=== PATIENT | male | born 1945 | race American Indian/Alaskan Native ===

== ENCOUNTER 2016-11-15 19:37 | Emergency (ER) | payer MEDICARE ==
[2016-11-16 15:53] VITALS: BP 150/70
--- NOTE | 2016-11-16 16:58 | Emergency Department Report ---
ED General Adult HPI - General Chief complaint: Nausea/Vomiting/Diarrhea Stated complaint: RECTAL PAIN Time Seen by Provider: 11/16/16 16:42 Source: patient, RN notes reviewed, old records reviewed Mode of arrival: Ambulatory Limitations: No Limitations - History of Present Illness Initial comments: This is a 71-year-old male, who might have evaluated in the past. Primary care doctor is Dr. John Montero. Has a past medical history of hypertension, chronic venous insufficiency, chronic lower extremity ulcers, diabetes, obesity and hypertension. The patient presents to the ER complaining of frequent bowel movements since August. They are nonbloody. They're intermittent. They are painless. He has no extremity weakness which is new or different. There is no abdominal pain or rectal pain. There is no saddle anesthesia. There is no testicular pain. Denies irritative and obstructive urinary symptoms. Cannot describe exacerbating or relieving factors. He is not homicidal. He is not suicidal. -: Gradual, month(s) Severity scale (0 -10): 8 Consistency: intermittent Improves with: none Worsens with: none Associated Symptoms: denies: confusion, chest pain, cough, diaphoresis, fever/ chills, headaches, loss of appetite, malaise, nausea/vomiting, rash, seizure, shortness of breath, syncope, weakness Treatments Prior to Arrival: none - Related Data Home Medications Medication Instructions Recorded Confirmed Last Taken glipiZIDE XL [Glucotrol Xl] 10 mg PO QAM 02/25/16 02/25/16 Unknown Previous Rx's Medication Instructions Recorded Last Taken Type Amlodipine Besylate/Benazepril 10 mg PO DAILY #30 capsule 08/01/15 Unknown Rx [Lotrel 10-20 mg] Bicalutamide [Casodex] 50 mg PO DAILY #30 tablet 08/01/15 Unknown Rx Cyclobenzaprine [Flexeril 10 MG 10 mg PO TID PRN #30 tablet 08/01/15 Unknown Rx TAB] Gabapentin [Neurontin] 300 mg PO QHS #30 capsule 08/01/15 Unknown Rx traMADol [Ultram 50 MG tab] 50 mg PO BID #60 tablet 08/01/15 Unknown Rx Furosemide [Lasix] 20 mg PO QDAY #7 tablet 09/15/15 Unknown Rx Sulfamethoxazole/Trimethoprim 1 each PO BID #14 tablet 11/19/15 Unknown Rx [Bactrim DS TAB] Furosemide [Lasix TAB] 40 mg PO QDAY #30 tablet 03/11/16 Unknown Rx risperiDONE [RisperDAL] 0.5 mg PO QAM #30 tablet 03/11/16 Unknown Rx risperiDONE [RisperDAL] 1 mg PO QHS #30 tablet 03/11/16 Unknown Rx Allergies Allergy/AdvReac Type Severity Reaction Status Date / Time No Known Allergies Allergy Verified 07/28/15 20:16 ED Review of Systems ROS: Stated complaint: RECTAL PAIN Other details as noted in HPI Constitutional: denies: fever Eyes: denies: eye discharge ENT: denies: epistaxis Respiratory: denies: cough Cardiovascular: denies: chest pain Gastrointestinal: denies: abdominal pain Genitourinary: as per HPI. denies: urgency, dysuria, testicular pain Musculoskeletal: denies: back pain Skin: lesions Neurological: denies: weakness Psychiatric: as per HPI ED Past Medical Hx - Past Medical History Previous Medical History?: Yes Hx Hypertension: Yes Hx Congestive Heart Failure: Yes Hx Diabetes: Yes Additional medical history: venous ulcers - Surgical History Past Surgical History?: Yes Additional Surgical History: unknown - Social History Smoking Status: Never Smoker Substance Use Type: None - Medications Home Medications: Home Medications Medication Instructions Recorded Confirmed Last Taken Type Amlodipine Besylate/Benazepril 10 mg PO DAILY #30 capsule 08/01/15 02/25/16 Unknown Rx [Lotrel 10-20 mg] Bicalutamide [Casodex] 50 mg PO DAILY #30 tablet 08/01/15 02/25/16 Unknown Rx Cyclobenzaprine [Flexeril 10 MG 10 mg PO TID PRN #30 tablet 08/01/15 02/25/16 Unknown Rx TAB] Gabapentin [Neurontin] 300 mg PO QHS #30 capsule 08/01/15 02/25/16 Unknown Rx traMADol [Ultram 50 MG tab] 50 mg PO BID #60 tablet 08/01/15 02/25/16 Unknown Rx Furosemide [Lasix] 20 mg PO QDAY #7 tablet 09/15/15 02/25/16 Unknown Rx Sulfamethoxazole/Trimethoprim 1 each PO BID #14 tablet 11/19/15 02/25/16 Unknown Rx [Bactrim DS TAB] glipiZIDE XL [Glucotrol Xl] 10 mg PO QAM 02/25/16 02/25/16 Unknown History Furosemide [Lasix TAB] 40 mg PO QDAY #30 tablet 03/11/16 Unknown Rx risperiDONE [RisperDAL] 0.5 mg PO QAM #30 tablet 03/11/16 Unknown Rx risperiDONE [RisperDAL] 1 mg PO QHS #30 tablet 03/11/16 Unknown Rx ED Physical Exam - General Limitations: No Limitations General appearance: alert, in no apparent distress - Head Head exam: Present: atraumatic, normocephalic - Eye Eye exam: Present: normal appearance, EOMI. Absent: nystagmus - ENT ENT exam: Present: normal exam, normal orophraynx, mucous membranes moist - Neck Neck exam: Present: normal inspection, full ROM. Absent: tenderness, meningismus - Respiratory Respiratory exam: Present: normal lung sounds bilaterally. Absent: respiratory distress, wheezes, rales, rhonchi, stridor, chest wall tenderness - Cardiovascular Cardiovascular Exam: Present: regular rate, normal rhythm, normal heart sounds. Absent: bradycardia, tachycardia, irregular rhythm, systolic murmur, diastolic murmur, rubs, gallop - GI/Abdominal GI/Abdominal exam: Present: soft, normal bowel sounds. Absent: distended, tenderness, guarding, rebound, rigid, pulsatile mass - Rectal Rectal exam: Present: normal inspection, normal rectal tone, heme (-) stool - exam: Present: normal inspection External exam: Present: normal external exam - Extremities Exam Extremities exam: Present: full ROM, normal capillary refill, pedal edema, other (she has chronic bilateral lower extremity wounds. Chronic venous insufficiency, chronic discoloration, chronic hypertrophy. 2+ pulses noted in 4 extremities. No obvious redness, pus, streaking.). Absent: tenderness, joint swelling, calf tenderness - Back Exam Back exam: Present: normal inspection, full ROM. Absent: tenderness, CVA tenderness (R), CVA tenderness (L), muscle spasm, paraspinal tenderness, vertebral tenderness - Neurological Exam Neurological exam: Present: alert, oriented X3, normal gait, other (Extraocular movements intact. Tongue midline. No facial droop. Facial sensation intact to light touch in the V1, V2, V3 distribution bilaterally. 5 and 5 strength in 4 extremities.. Sensation is intact to light touch in 4 extremities.). Absent : motor sensory deficit - Psychiatric Psychiatric exam: Present: normal affect, normal mood - Skin Skin exam: Present: warm, dry, intact, normal color. Absent: rash ED Course Vital Signs 11/15/16 11/16/16 11/16/16 21:26 02:47 15:51 Temperature 98.5 F 98.1 F 98.9 F Pulse Rate 100 H 89 83 Respiratory 20 18 22 Rate Blood Pressure 147/73 125/80 Blood Pressure 150/70 [Right] O2 Sat by Pulse 95 98 98 Oximetry 11/16/16 16:40 Temperature Pulse Rate Respiratory 18 Rate Blood Pressure Blood Pressure [Right] O2 Sat by Pulse 98 Oximetry - Reevaluation(s) Reevaluation #1: 11/16/16 17:46 Differential diagnosis: Diarrhea, general medical evaluation Assessment and plan: 71-year-old male who has a bizarre affect but is not homicidal or suicidal, is alert and oriented 3, walks with a steady gait, does not meet criteria for 1013. He is clinically sober. His physical exam is unremarkable, he has no clinical indication of epidural compression syndrome, he has not had any fecal incontinence while in the emergency department, has good rectal tone, and has chronic wounds which do not appear to be acutely infected. I don't believe that he requires laboratory studies at this time, he is tolerating liquid feeds, and obliquely requires advanced imaging. Does not appear to be any emergent condition which exists at this time. He can follow up with outpatient primary care, wound care, and will be discharged. Critical care attestation.: If time is entered above; I have spent that time in minutes in the direct care of this critically ill patient, excluding procedure time. ED Disposition Clinical Impression: Venous stasis, Mood disorder Disposition: DISCHARGED TO HOME OR SELFCARE Is pt being admited?: No Does the pt Need Aspirin: No Condition: Stable Instructions: Wound Healing and Your Diet (ED), Chronic Wound Care (ED) Additional Instructions: Continue current outpatient medications. Follow-up with the primary care doctor within the next week to 2 weeks. I have given you names, phone numbers, addresses of local primary care doctors. In addition, Dr. Chilel is a local biomedical equipment specialist. Please contact his office to arrange follow- up for your chronic lower extremity wounds. Return to the ER right away with fevers, chills, chest pain, shortness of breath, abdominal pain, inability to tolerate liquids feeds. Referrals: PRIMARY CARE, [Primary Care Provider] - 3-5 Days BUBBA CARMONA MD [Staff Physician] - 3-5 Days MARE CHILEL MD [Staff Physician] - 3-5 Days
== END 2016-11-16 18:04 | disposition home or self-care (01) ==
LOC: ED 19:37
DX: I87.8 Other specified disorders of veins (principal); F39 Unspecified mood [affective] disorder; I10 Essential (primary) hypertension; I50.9 Heart failure, unspecified; E11.9 Type 2 diabetes mellitus without complications
CPT/HCPCS: 99282

== ENCOUNTER 2018-05-22 11:13 | Emergency (ER) | payer MEDICARE ==
--- NOTE | 2018-05-22 11:58 | Emergency Department Report ---
ED General Adult HPI - General Chief complaint: Laceration/Recheck/Suture Stated complaint: LEG PAIN Time Seen by Provider: 05/22/18 11:47 Source: patient, EMS (ems notes not available at time of chart dictation), RN notes reviewed, old records reviewed Mode of arrival: Stretcher Limitations: Other (patient is a poor historian) - History of Present Illness Initial comments: This is a 72-year-old male whom I have evaluated in the past, has a history of chronic lower extremity wounds, at least since 2014, 2015, has been noncompliant with outpatient wound follow-up, who presents to the ER with EMS with chronic lower extremity wounds. He has no headache, neck pain, chest pain , abdominal pain, shortness of breath or urinary symptoms. The wounds are painful, the pain is sharp, it increases with palpation and decreases with rest , does not radiate anywhere, patient indicates he is dressing the wounds on his own. -: year(s) Location: left, right, lower extremity Radiation: non-radiation Quality: aching Consistency: constant Improves with: rest Worsens with: movement Associated Symptoms: malaise, rash. denies: confusion, chest pain, cough, diaphoresis, fever/chills, headaches, loss of appetite, nausea/vomiting, seizure , shortness of breath, syncope, weakness - Related Data Home Medications Medication Instructions Recorded Confirmed Last Taken glipiZIDE XL [Glucotrol Xl] 10 mg PO QAM 02/25/16 02/25/16 Unknown Previous Rx's Medication Instructions Recorded Last Taken Type Amlodipine Besylate/Benazepril 10 mg PO DAILY #30 capsule 08/01/15 Unknown Rx [Lotrel 10-20 mg] Bicalutamide [Casodex] 50 mg PO DAILY #30 tablet 08/01/15 Unknown Rx Cyclobenzaprine [Flexeril 10 MG 10 mg PO TID PRN #30 tablet 08/01/15 Unknown Rx TAB] Gabapentin [Neurontin] 300 mg PO QHS #30 capsule 08/01/15 Unknown Rx traMADol [Ultram 50 MG tab] 50 mg PO BID #60 tablet 08/01/15 Unknown Rx Furosemide [Lasix] 20 mg PO QDAY #7 tablet 09/15/15 Unknown Rx Sulfamethoxazole/Trimethoprim 1 each PO BID #14 tablet 11/19/15 Unknown Rx [Bactrim DS TAB] Furosemide [Lasix TAB] 40 mg PO QDAY #30 tablet 03/11/16 Unknown Rx risperiDONE [RisperDAL] 0.5 mg PO QAM #30 tablet 03/11/16 Unknown Rx risperiDONE [RisperDAL] 1 mg PO QHS #30 tablet 03/11/16 Unknown Rx Allergies Allergy/AdvReac Type Severity Reaction Status Date / Time No Known Allergies Allergy Verified 05/22/18 11:53 ED Review of Systems ROS: Stated complaint: LEG PAIN Other details as noted in HPI Constitutional: denies: fever Eyes: denies: eye discharge ENT: denies: epistaxis Respiratory: denies: cough Cardiovascular: denies: chest pain Gastrointestinal: denies: abdominal pain Genitourinary: denies: dysuria Musculoskeletal: arthralgia, myalgia Skin: lesions Neurological: weakness ED Past Medical Hx - Past Medical History Hx Hypertension: Yes Hx Congestive Heart Failure: Yes Hx Diabetes: Yes Additional medical history: venous ulcers - Surgical History Additional Surgical History: unknown - Social History Smoking Status: Never Smoker Substance Use Type: None - Medications Home Medications: Home Medications Medication Instructions Recorded Confirmed Last Taken Type Amlodipine Besylate/Benazepril 10 mg PO DAILY #30 capsule 08/01/15 02/25/16 Unknown Rx [Lotrel 10-20 mg] Bicalutamide [Casodex] 50 mg PO DAILY #30 tablet 08/01/15 02/25/16 Unknown Rx Cyclobenzaprine [Flexeril 10 MG 10 mg PO TID PRN #30 tablet 08/01/15 02/25/16 Unknown Rx TAB] Gabapentin [Neurontin] 300 mg PO QHS #30 capsule 08/01/15 02/25/16 Unknown Rx traMADol [Ultram 50 MG tab] 50 mg PO BID #60 tablet 08/01/15 02/25/16 Unknown Rx Furosemide [Lasix] 20 mg PO QDAY #7 tablet 09/15/15 02/25/16 Unknown Rx Sulfamethoxazole/Trimethoprim 1 each PO BID #14 tablet 11/19/15 02/25/16 Unknown Rx [Bactrim DS TAB] glipiZIDE XL [Glucotrol Xl] 10 mg PO QAM 02/25/16 02/25/16 Unknown History Furosemide [Lasix TAB] 40 mg PO QDAY #30 tablet 03/11/16 Unknown Rx risperiDONE [RisperDAL] 0.5 mg PO QAM #30 tablet 03/11/16 Unknown Rx risperiDONE [RisperDAL] 1 mg PO QHS #30 tablet 03/11/16 Unknown Rx ED Physical Exam - General Limitations: No Limitations General appearance: alert, in no apparent distress - Head Head exam: Present: atraumatic, normocephalic - Eye Eye exam: Present: normal appearance, EOMI. Absent: nystagmus - ENT ENT exam: Present: normal exam, normal orophraynx, mucous membranes moist, normal external ear exam - Neck Neck exam: Present: normal inspection, full ROM - Respiratory Respiratory exam: Present: normal lung sounds bilaterally. Absent: respiratory distress - Cardiovascular Cardiovascular Exam: Present: regular rate, normal rhythm, normal heart sounds. Absent: bradycardia, tachycardia, irregular rhythm, systolic murmur, diastolic murmur, rubs, gallop - GI/Abdominal GI/Abdominal exam: Present: soft, normal bowel sounds. Absent: distended, tenderness, guarding, rebound, rigid, pulsatile mass - Rectal Rectal exam: Present: deferred - Extremities Exam Extremities exam: Present: full ROM, tenderness, calf tenderness, other (2+ pulses noted in the bilateral upper, lower extremities. Patient has chronic- appearing wounds in the lower extremities, with hyperpigmentation. Wounds are foul smelling, but there is no obvious discharge. Dressing around the wounds are moist.). Absent: normal inspection - Back Exam Back exam: Present: normal inspection, full ROM. Absent: tenderness, CVA tenderness (R), paraspinal tenderness, vertebral tenderness - Neurological Exam Neurological exam: Present: alert, oriented X3, CN II-XII intact, other ( Extraocular movements intact. Tongue midline. No facial droop. Facial sensation intact to light touch in the V1, V2, V3 distribution bilaterally. 5 and 5 strength in 4 extremities.. Sensation is intact to light touch in 4 extremities.). Absent: motor sensory deficit - Psychiatric Psychiatric exam: Present: anxious - Skin Skin exam: Present: warm, other (, chronic lower extremity wounds in the bilateral lower extremities.) ED Course Vital Signs 05/22/18 05/22/18 05/22/18 11:54 13:16 13:26 Temperature 98.3 F 98.7 F Pulse Rate 80 84 84 Respiratory 18 14 26 H Rate Blood Pressure 115/56 Blood Pressure 133/59 [Left] O2 Sat by Pulse 93 94 95 Oximetry ED Medical Decision Making - Lab Data Result diagrams: 05/22/18 12:24 05/22/18 12:24 Vital Signs 05/22/18 05/22/18 05/22/18 11:54 13:16 13:26 Temperature 98.3 F 98.7 F Pulse Rate 80 84 84 Respiratory 18 14 26 H Rate Blood Pressure 115/56 Blood Pressure 133/59 [Left] O2 Sat by Pulse 93 94 95 Oximetry Lab Results 05/22/18 05/22/18 Range/Units 12:24 12:24 WBC 13.0 H (4.5-11.0) K/mm3 RBC 4.12 (3.65-5.03) M/mm3 Hgb 11.5 L (11.8-15.2) gm/dl Hct 35.3 L (35.5-45.6) % MCV 86 (84-94) fl MCH 28 (28-32) pg MCHC 32 (32-34) % RDW 15.2 (13.2-15.2) % Plt Count 306 (140-440) K/mm3 Sodium 136 L (137-145) mmol/L Potassium 4.2 (3.6-5.0) mmol/L Chloride 100.2 (98-107) mmol/L Carbon Dioxide 23 (22-30) mmol/L Anion Gap 17 mmol/L BUN 22 H (9-20) mg/dL Creatinine 1.3 (0.8-1.5) mg/dL Estimated GFR > 60 ml/min BUN/Creatinine Ratio 17 % Glucose 105 H (75-100) mg/dL Calcium 8.8 (8.4-10.2) mg/dL Total Creatine Kinase 360 H (55-170) units/L - Medical Decision Making Differential diagnosis, including but not limited to: Chronic lower extremity wounds, venous stasis ulcers, hyperpigmentation, stasis dermatitis Assessment and plan: 72-year-old male with chronic wounds that are not superinfected. Wound dressings have been changed. Laboratory studies unremarkable. Patient was seen by case management and given outpatient resources. Patient can follow-up as an outpatient with local wound care center. He does not meet criteria for inpatient admission at this time. Critical care attestation.: If time is entered above; I have spent that time in minutes in the direct care of this critically ill patient, excluding procedure time. ED Disposition Clinical Impression: Chronic wound of extremity Disposition: DC-01 TO HOME OR SELFCARE Is pt being admited?: No Does the pt Need Aspirin: No Condition: Good Instructions: Chronic Wound Care (ED) Additional Instructions: Continue outpatient wound care as directed by nursing care staff. Continue current outpatient medications. Follow-up with a primary care doctor and carburetor specialist within the next week. Return to the ER right away with fevers, chills, lethargy, irritability, projectile vomiting, change in mental status, confusion, inability to tolerate liquid feeds. Referrals: PRIMARY CARE [Primary Care Provider] - 3-5 Days [facility]Outside] - 3-5 Days
[2018-05-22] MEDS ORDERED: NACL 0.9% 1,000 ML IR ONE (12:04)
[2018-05-22 12:52] LABS: BUN/Creatinine Ratio 17; Blood Urea Nitrogen 22 mg/dL (9-20); Calcium 8.8 mg/dL (8.4-10.2); Hemolysis Index 0
[2018-05-22 12:57] LABS: Hematocrit 35.3 % (35.5-45.6); Hemoglobin 11.5 gm/dl (11.8-15.2); Mean Corpuscular HGB Conc 32 % (32-34); Mean Corpuscular Hemoglobin 28 pg (28-32); Mean Corpuscular Volume 86 fl (84-94); Platelet Count 306 K/mm3 (140-440); Red Blood Count 4.12 M/mm3 (3.65-5.03); Red Cell Distribution Width 15.2 % (13.2-15.2)
[2018-05-22 13:28] VITALS: BP 133/59
[2018-05-22] MEDS ORDERED: TYLENOL ONE (13:35)
== END 2018-05-22 18:21 | disposition home or self-care (01) ==
LOC: ED 11:13
DX: Z48.00 Encounter for change or removal of nonsurgical wound dressing (principal); I11.0 Hypertensive heart disease with heart failure; E11.9 Type 2 diabetes mellitus without complications
CPT/HCPCS: 36415; 80048; 82550; 85027; 99283